=== PATIENT | male | born 1965 | race Caucasian/White ===

== ENCOUNTER 2017-05-17 01:54 | Emergency (ER) | payer OTHER | END 2017-05-17 04:35 | disposition other institution (70) | LOC: ED 01:54 | DX: Z02.89 Encounter for other administrative examinations (principal) ==

== ENCOUNTER 2017-05-17 01:54 | Emergency (ER) | payer SELFPAY ==
[2017-05-17 03:00] LABS: CALCIUM 9.3 mg/dL (8.5-10.1); CARBON DIOXIDE 31.5 mmol/L (21-32); CHLORIDE SERUM 101 mmol/L (98-107); GFR1 > 60 mL/min; GLUCOSE SERUM 200 mg/dL (74-106); POTASSIUM SERUM 3.8 mmol/L (3.5-5.1); SODIUM SERUM 137 mmol/L (136-145)
[2017-05-17 03:12] LABS: BASOPHIL % 1.8 % (0-2); PLATELET COUNT 229 x10^3mcL (130-400)
[2017-05-17 03:43] LABS: microscopic required? NO
[2017-05-17 04:03] LABS: UA SPECIFIC GRAVITY 1.025 (1.005-1.035); urine erythrocyte NEGATIVE (NEGATIVE)
[2017-05-17 04:35] VITALS: BP 144/86
== END 2017-05-17 04:35 | disposition other institution (70) ==
LOC: ED 01:54
PROVIDERS: Emergency Medicine Emergency Medical Services
DX: E11.65 Type 2 diabetes mellitus with hyperglycemia (principal)
CPT/HCPCS: 36415; J1885